=== PATIENT | female | born 1955 | race Caucasian/White ===

== ENCOUNTER 2017-10-13 21:54 | Inpatient (IN) ==
[2017-10-13] MEDS ORDERED: fentaNYL Inj 100 MCG/2 ML VIAL IVP ONE (22:16)
[2017-10-13] MEDS ORDERED: Sodium Chloride 0.9% 1,000 ML PRIMARY IV ONE (22:16)
[2017-10-13] MEDS ORDERED: Prochlorperazine Edisylate Inj 10mg/2ml vial IVP ONE (22:16)
[2017-10-13] MEDS ORDERED: NORMAL SALINE 10 ML SYRINGE FLUSH IVP PRN ×2 (22:16→23:31)
[2017-10-13 22:30] LABS: BASOPHILS # (AUTO) 0.02 10*3/UL; BASOPHILS % (AUTO) 0.1 % (0-1); EOSINOPHILS # (AUTO) 0.18 10*3/UL; EOSINOPHILS % (AUTO) 0.8 % (0-8); Hemoglobin [HGB] 15.1 g/dL (12.0-16.0); LYMPHOCYTES # (AUTO) 2.86 10*3/uL; MEAN CORPUSCULAR HEMOGLOBIN 30.2 PG (27-31); MEAN CORPUSCULAR HGB CONC 34.3 g/dL (33-37); MEAN PLATELET VOLUME 9.7 FL (7.4-12.2); MONOCYTES # (AUTO) 1.55 10*3/UL (0.3-0.8); MONOCYTES % (AUTO) 7.2 % (5-15); NEUTROPHILS # (AUTO) 16.94 10*3/UL; NEUTROPHILS % (AUTO) 78.4 % (50-80)
[2017-10-13 22:42] LABS: BLOOD UREA NITROGEN 11 mg/dL (7-22); BUN/CREATININE RATIO 12.22 (6-20); SERUM ALBUMIN 4.1 g/dL (3.5-4.8)
[2017-10-13 22:46] LABS: PLATELET MORPHOLOGY COMMENT NORMAL MORPHOLOGY (NORM); RBC MORPHOLOGY COMMENT NORMAL MORPHOLOGY (NORM); WBC MORPHOLOGY COMMENT NORMAL MORPHOLOGY (NORM)
--- NOTE | 2017-10-13 22:57 | PDOC ---
Abdomen/Flank HPI - General Chief Complaint: Abdomen Pain Stated Complaint: ABDOMEN PAIN Date Seen by Provider: 10/13/17 Time Seen by Provider: 22:10 Source: POSITIVE: Patient Exam Limitations: POSITIVE: No limitations Nurse's Notes Reviewed & Considered: Yes - History of Present Illness Initial Comments: The patient is a 62-year-old female who presents to the emergency department with abdominal pain. She states that she had onset of pain in the epigastric/ upper abdomen yesterday. She states that at 3:00 this morning the pain became very intense. She was evaluated in the emergency department at [facility] in [place]. She had an elevated white count at 18,000 as well as elevated pancreatic enzymes with a lipase of over 18,000 and an amylase of 2700. She had a CAT scan of her abdomen and pelvis which showed some mild inflammatory change at the head of the pancreas with no other acute abnormalities. She had been given a Toradol injection IM and was discharged home. She states that the Toradol never really did help with her pain. Her pain has intensified since then. She tried taking some Tylenol which did not seem to help at all. She has been taking some sips of water and apple juice. She does not have any known history of pancreatitis. She had prior cholecystectomy in the s and distant history of hysterectomy and appendectomy. She does not drink alcohol and states that she maybe had one beer last year. She does take several homeopathic medications. - Patient Home Medications Home Medications: Home Medications Estradiol/Levonorgestrel [Climara Pro Patch] 1 patch TD WEEKLY patch 12/06/11 Evening Applegate Oil [Evening Applegate] 500 mg PO cap 05/04/16 Albuterol Sulfate [Proair Hfa] 1 - 2 puff INH Q4-6H PRN #1 inhaler 08/15/16 Fluticasone Propionate [Flonase Allergy Relief] 2 spr RAMEZ DAILY #1 bottle 05/10 - Patient Allergies Allergies/Adverse Reactions: Allergies 3 Allergy/AdvReac Type Severity Reaction Status Date / Time cephalexin monohydrate Allergy Intermediate HIVES Verified 08/26/16 06:43 [From Keflex] erythromycin base Allergy Intermediate HIVES Verified 08/26/16 06:43 codeine Allergy UNRESPONSIV Verified 08/26/16 06:43 E meperidine HCl [From Demerol] Allergy UNRESPONSIV Verified 08/26/16 06:43 E morphine Allergy UNRESPONSIV Verified 08/26/16 06:43 E oxycodone Allergy HIVES Verified 08/26/16 06:43 Penicillins Allergy UNRESPONSIV Verified 08/26/16 06:43 E Sulfa (Sulfonamide Allergy UNRESPONSIV Verified 08/26/16 06:43 Antibiotics) E phenobarbital AdvReac Mild VOMITING Verified 08/26/16 06:43 Past Medical History - heen HEENT History: Other (please comment) Additional HEENT History: tonsils and adoids Cardiovascular History: Denies History Respiratory History: Denies History Additional Respiratory History: allergic rhinitis Gastrointestinal History: Gallbladder Disease Additional Gastrointestinal History: Appy, GB removed Genitourinary History: Denies History Endocrine History: Denies History Musculoskeletal History: Joint Pain Prosthesis or Implant: No Additional Musculoskeletal History: right elbow. left foot surgeries Neurological History: Denies History Blood Disorders: Denies History Psychiatric History: Denies History History of Sexually Transmitted Diseases: No Cancer History: Denies History History of MDRO: No History of Other Communicable Diseases: No Alcohol Use: None In the Past 12 Months, Have Used or Abuse Any Substance: None Previous Surgical History: Yes Significant Family History: No pertinent family hx Past Medical History Reviewed: Reviewed - No Changes ROS - Limitations ROS Limitations: No Limitations Constitution: REPORTS: Chills (She has been having chills all day), Other (She states that her white count has been persistently elevated for at least the past year. She states that several weeks ago it was 14,000.). DENIES: Fever Cardiovascular: REPORTS: Denies Cardiac Symptoms. DENIES: Chest Pain Respiratory: DENIES: Hurts To Breathe, Shortness Of Breath Neurological: REPORTS: Denies Neuro Symptoms Gastrointestinal: REPORTS: Abdominal Pain, Nausea. DENIES: Vomitting, Diarrhea , Black Stools, Bloody Stools, Constipation Musculoskeletal: REPORTS: Denies MS Symptoms Genitourinary: REPORTS: Denies Symptoms Eyes: REPORTS: Denies Symptoms ENT: REPORTS: Denies Symptoms Skin: REPORTS: Rash Abdominal/Flank Pain PE - General Appearance General Appearance: POSITIVE: Alert, Cooperative, No Acute Distress, Other (She appears to be having significant pain) - HEENT HEENT: POSITIVE: Head Inspection Nml, Eyes Inspection Nml, Ears Inspection Nml, Pharynx Inspect. Nml, Dry Mucous Membranes - Neck Neck: POSITIVE: Normal Inspection. NEGATIVE: Lymphadenopathy - Respiratory Respiratory: POSITIVE: No Respiratory Distress, Breath Sounds Normal, Chest Non- Tender - Cardiovascular Cardiovascular: POSITIVE: Regular Rate and Rhythm, Heart Sounds Normal Peripheral Pulses: Dorsalis-pedis (R): 2+, Dorsalis-pedis (L): 2+ - Abdomen Abdomen: Soft: (All Quadrants), No Guarding: (All Quadrants), No Rebound: (All Quadrants), No Distention: (All Quadrants) Additional Abdominal Details: She is tender primarily in the epigastric region without guarding or rebound tenderness - Skin Skin: POSITIVE: Intact, No Rash - Extremities Extremity: Normal ROM: (All Extremities), Normal Inspection: (All Extremities) - Neurological Neurological: POSITIVE: Oriented X3, Motor Normal, Sensation Normal Abdomen Progress - Results Reviewed by me Radiology Findings: CT report from her abdomen and pelvis CT done at [facility] this morning shows mild inflammatory changes at the pancreatic head with no other acute abnormalities. Lab Results Reviewed by Me: Yes CBC and BMP: 10/13/17 22:25 10/13/17 22:25 - Patient's Progress MDM / ED Course: Blood cultures were drawn with IV start. The patient received fentanyl and Compazine for pain and nausea. She also received 1 L bolus of normal saline. She has already had a workup earlier this morning which showed significantly elevated amylase and lipase as well as inflammatory changes at the pancreatic head on CT. Repeat labs were drawn and the patient was discussed with Dr. Mccord who has agreed to admit the patient for further treatment. Patients were discussed with the patient and she is in agreement with this plan. - Consult Counseled: POSITIVE: Patient, Family, RE: Lab Results, RE: DX, RE: Need for F/U Patient Care Time - Estimated PCT Patient Care Time (In Minutes): 20 Vital Signs - VS Reviewed Vital Signs Reviewed: Yes Discharge Clinical Impression: Pancreatitis Qualifiers: Chronicity: acute Pancreatitis type: idiopathic Acute pancreatitis complication : no infection or necrosis Qualified Code(s): K85.00 - Idiopathic acute pancreatitis without necrosis or infection Leukocytosis Qualifiers: Leukocytosis type: unspecified Qualified Code(s): D72.829 - Elevated white blood cell count, unspecified Discharge Disposition: Admit to Inpatient Condition: Fair Date Decision to Admit to Inpatient: 10/13/17 Time Decision to Admit to Inpatient: 22:25
[2017-10-13 23:06] LABS: LIPASE 10221 IU/L (23-300)
[2017-10-13] MEDS ORDERED: ONDANSETRON 4 MG/2 ML VIAL ONE (23:24)
[2017-10-13] MEDS ORDERED: HYDROmorphone 2 MG/1 ML ONE (23:24)
[2017-10-13] MEDS ORDERED: ONDANSETRON 4 MG/2 ML VIAL IVP ONE (23:25)
[2017-10-13] MEDS ORDERED: HYDROmorphone 2 MG/1 ML IVP ONE (23:25)
[2017-10-13] MEDS ORDERED: ALBUTEROL SULFATE 8.5 GM HFA INHALER INH PRN (23:31)
[2017-10-13] MEDS ORDERED: CALCIUM CARBONATE 500 MG (TUMS) CHEWABLE TABLET PO PRN (23:31)
[2017-10-13] MEDS ORDERED: LIDOCAINE W/ SODIUM BICARB 0.5 ML SYR SUBD PRN (23:31)
[2017-10-13] MEDS ORDERED: DOCUSATE 100 MG CAPSULE PO PRN (23:31)
[2017-10-13] MEDS ORDERED: D5-1/2NS + 20mEq KCL 1,000 ML PRIMARY IV ONE (23:31)
[2017-10-13] MEDS ORDERED: ACETAMINOPHEN 325 MG TABLET PO PRN (23:31)
--- NOTE | 2017-10-13 23:31 | PDOC ---
HPI - History of Present Illness Date of Service: 10/13/17 Time of Service: 11:30 Chief Complaint: Abdominal pain History of Present Illness: This is a 62-year-old female with really no past medical history outside of hormone replacement therapy because of an early life hysterectomy who presents with complains of abdominal pain. She is accompanied with her here kim. She states that her pain started in the epigastric area and around her xiphoid process and in her lower quadrants around [place]. She states it' s been a constant pain and does not really been worsened by anything, but she thinks she had a low-grade fever as well. She sees a provider for some hormone injections including an estrogen/testosterone therapy, and does IM shots for that. At that time she had a white blood cell count of around 14,000, and was given Cipro. She later saw her cad intern to tested her urine but did not culture it and it was positive for nitrites and the patient was placed on Macrobid at that time. None of this has made any difference in her abdominal pain. Interestingly, she presented last night to [facility] in [place], and was diagnosed with pancreatitis with a lipase of over 18 ,000, she had her labs with her and a copy of her CT scan which showed mild inflammation of the pancreatic head. There was no evidence of ductal dilation on that CT scan report although I do not have the films to review here. Kim , on repeat labs, her amylase and lipase are both elevated, but her liver enzymes are normal. She's never had pancreatitis before and she does not drink alcohol. She had a cholecystectomy, open cholecystectomy, several years back. Past Medical History Medical History: 1. Hormone replacement therapy status post hysterectomy. 2. Leukocytosis dating back to at least August 2016. Surgical History: 1. Cholecystectomy. 2. Appendectomy. 3. Hysterectomy. 4. Salpingo-oophorectomy. 5. Right abdominal hernia repair. 6. Tonsillectomy. 7. History of EGD and colonoscopy Pertinent Family History: She states that she has a daughter with Vicente syndrome. Past Social History: Does not smoke or drink alcohol. for over 30 years. Has 2 children. 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 Tobacco Use: Never Smoker In the Past 12 Months, Have Used or Abuse Any of the Following Substance: None Alcohol Use: None Medication / Allergies Home Medications: Home Medications Medication Instructions Recorded Confirmed Type Estradiol/Levonorgestrel [Climara 1 patch TD WEEKLY patch 12/06/11 05/09/15 History Pro Patch] Evening Lester Oil [Evening 500 mg PO cap 05/04/16 History Lester] Albuterol Sulfate [Proair Hfa] 1 - 2 puff INH Q4-6H PRN #1 inhaler 08/15/16 History Fluticasone Propionate [Flonase 2 spr RAMEZ DAILY #1 bottle 05/10/17 Rx Allergy Relief] Allergies/Adverse Reactions: Allergies 3 Allergy/AdvReac Type Severity Reaction Status Date / Time cephalexin monohydrate Allergy Intermediate HIVES Verified 08/26/16 06:43 [From Keflex] erythromycin base Allergy Intermediate HIVES Verified 08/26/16 06:43 codeine Allergy UNRESPONSIV Verified 08/26/16 06:43 E meperidine HCl [From Demerol] Allergy UNRESPONSIV Verified 08/26/16 06:43 E morphine Allergy UNRESPONSIV Verified 08/26/16 06:43 E oxycodone Allergy HIVES Verified 08/26/16 06:43 Penicillins Allergy UNRESPONSIV Verified 08/26/16 06:43 E Sulfa (Sulfonamide Allergy UNRESPONSIV Verified 08/26/16 06:43 Antibiotics) E phenobarbital AdvReac Mild VOMITING Verified 08/26/16 06:43 Review of Systems - Review of Systems All Systems: Reviewed & No Additional Complaints Except as Stated (I did a 12 point review of systems and it was negative other than that stated in history present illness and that noted below.) - Gastrointestinal Gastrointestinal / Abdominal: REPORTS: Abdominal Pain, Other (Had nausea, but no vomiting, diarrhea, or constipation. No blood in the stool) - Genitourinary Genitourinary: REPORTS: Negative System Review (Currently negative) - Musculoskeletal Musculoskeletal: REPORTS: Other (This culture might have fibromyalgia in the past but that seems to resolved in terms of thought process.) - Hematlogic / Lymphatic Hematologic / Lymphatic: REPORTS: Easy Bleeding/Bruising, Other (Easy bruising at times) Exam - Vitals Vital Signs: Vital Signs - Last Taken Temperature 97.6 F 10/13/17 22:41 Pulse Rate 86 10/13/17 22:41 Respiratory Rate 18 10/13/17 22:41 Blood Pressure 148/80 10/13/17 22:41 Pulse Ox 95 10/13/17 22:41 - General General Appearance: No Acute Distress, Cooperative - Head Head Exam: Normal Inspection, Normocephalic, Atraumatic - Eye Eye Exam: POSITIVE: No Scleral Icterus - ENT ENT Exam: POSITIVE: Mucous Membranes Moist - Neck Neck Exam: Normal Inspection, No Tenderness, No Lymphadenopathy, No Thyromegaly - Respiratory Respiratory Exam: POSITIVE: Clear to Auscultation - Bilaterally, Breathing Non Labored, Normal to Percussion and Palpation - Cardiovascular Cardiovascular Exam: POSITIVE: RRR, No Murmur, No Clicks, No Gallops, No Rubs, No JVD - GI/Abdominal GI/Abdominal Exam: POSITIVE: Normal Bowel Sounds, Non Distended, Soft Additional GI/Abdominal Exam Details: Epigastric tenderness on palpation - Rectal Rectal Exam: POSITIVE: Deferred - External Exam: POSITIVE: Deferred Exam: POSITIVE: Deferred - Extremities Extremities Exam: POSITIVE: No Clubbing Present, No Edema Present, No Cyanosis Present - Back Back Exam: POSITIVE: No CVA Tenderness - Neurological Neurological Exam: POSITIVE: Alert, Oriented x 3, No Facial Droop, Speech Intact / Clear, Moves All Extremities Equally - Psychiatric Psychiatric Exam: POSITIVE: Normal Affect, Normal Mood Results - Labs CBC and BMP: 10/13/17 22:25 10/13/17 22:25 Additional Lab Results: Laboratory Results 10/13/17 10/13/17 Range/Units 22:25 22:25 WBC 21.61 H (4.8-10.8) 10^3/uL RBC 5.00 (4.20-5.40) 10^6/uL Hgb 15.1 (12.0-16.0) g/dL Hct 44.0 (37.0-47.0) % MCV 88.0 (81-99) FL MCH 30.2 (27-31) PG MCHC 34.3 (33-37) g/dL RDW Std Deviation 45.3 (39-50) fL RDW Coeff of Dixie 14.2 (11.5-14.5) % Plt Count 322 (140-350) 10*3/uL MPV 9.7 (7.4-12.2) FL Immature Gran % (Auto) 0.3 (0-5) % Neut % (Auto) 78.4 (50-80) % Lymph % (Auto) 13.2 (10-50) % [place] % (Auto) 7.2 (5-15) % Eos % (Auto) 0.8 (0-8) % Baso % (Auto) 0.1 (0-1) % Immature Gran # (Auto) 0.06 10*3/UL Neut # (Auto) 16.94 10*3/UL Lymph # (Auto) 2.86 10*3/uL [place] # (Auto) 1.55 H (0.3-0.8) 10*3/UL Eos # (Auto) 0.18 10*3/UL Baso # (Auto) 0.02 10*3/UL WBC Morphology Comment Normal morphology (NORM) Plt Morphology Comment Normal morphology (NORM) RBC Morph Comment Normal morphology (NORM) Sodium 140 (135-145) meq/L Potassium 4.0 (3.8-5.2) meq/L Chloride 103 (98-112) meq/L Carbon Dioxide 24 (23-33) meq/L Anion Gap 13 (5-20) BUN 11 (7-22) mg/dL Creatinine 0.9 (0.50-1.20) mg/dL Estimated GFR > 60 (>60 ml/min/1.73m(2)) BUN/Creatinine Ratio 12.22 (6-20) Glucose 113 H (78-110) mg/dL Calculated Osmolality 289.0 (267-292) mOsm/kg Calcium 9.0 (8.7-10.7) mg/dL Total Bilirubin 0.5 (0.3-1.2) mg/dL AST 24 (8-39) IU/L ALT 29 (9-52) IU/L Alkaline Phosphatase 46 (38-126) IU/L C-Reactive Protein 4.0 H (0.0-0.9) mg/dL Total Protein 7.0 (6.1-8.0) g/dL Albumin 4.1 (3.5-4.8) g/dL Globulin 2.9 (2.50-4.10) g/dL Albumin/Globulin Ratio 1.40 (1.3-2.0) mg/g Amylase 1088 H (30-110) U/L Lipase 52127 H* (23-300) IU/L - Imaging Status: Report Reviewed by Me (I reviewed the report from [place] that the patient provided me. There was a CT scan of the abdomen and pelvis that was done there. There was evidence of pancreatitis with inflammation in the pancreatic head.) Assessment and Plan - Patient Problems (1) Pancreatitis Current Visit: Yes Status: Acute Code(s): K85.90 - Acute pancreatitis without necrosis or infection, unspecified Qualifiers: Chronicity: acute Pancreatitis type: idiopathic Acute pancreatitis complication: no infection or necrosis Qualified Code(s): K85.00 - Idiopathic acute pancreatitis without necrosis or infection (2) Leukocytosis Current Visit: Yes Status: Acute Code(s): D72.829 - Elevated white blood cell count, unspecified Qualifiers: Leukocytosis type: unspecified Qualified Code(s): D72.829 - Elevated white blood cell count, unspecified - Assessment / Plan Additional Assessment/Plan Details: Admit the patient. Nothing by mouth/IV fluids/pain control with parenteral medications and antiemetics with Zofran. Hold off on any antibiotics for this leukocytosis. I told the patient that I do not think it would be a good idea to go on antibiotics for an elevated white blood cell count as that is not the only indicator of infection. Randomly going on antibiotics could be dangerous due to side effects from these medications. There is no evidence of infection on exam at this time nor is there indication of infection in the history. I will keep her off of anabolic for now. IV fluids. Check labs tomorrow. In terms of the leukocytosis, this could certainly be CLL, I will go ahead and get protein and urine electrophoresis, and I will check a peripheral blood smear On Sunday I think the patient should have an MRCP scan or an abdominal MRI scan to look at this further to see if there is any pancreatic duct inflammation. Get an IgE level Check triglyceride level. Plan above discussed with patient and her and they agreed with the plan.
[2017-10-14] MEDS: HYDROmorphone 2 MG/1 ML IVP PRN ×7 (02:10→15:40)
[2017-10-14] MEDS: ONDANSETRON 4 MG/2 ML VIAL IVP PRN ×2 (04:42→11:45)
[2017-10-14 05:12] LABS: Hematocrit [HCT] 41.8 % (37.0-47.0); Hemoglobin [HGB] 14.1 g/dL (12.0-16.0); MEAN CORPUSCULAR HEMOGLOBIN 30.4 PG (27-31); MEAN CORPUSCULAR HGB CONC 33.7 g/dL (33-37); MEAN CORPUSCULAR VOLUME 90.1 FL (81-99); MEAN PLATELET VOLUME 9.8 FL (7.4-12.2); RED BLOOD COUNT 4.64 10^6/uL (4.20-5.40)
[2017-10-14 05:26] LABS: CHOL/HDL RATIO 2.22 RATIO (0-4.0)
[2017-10-14 05:27] LABS: BLOOD UREA NITROGEN 9 mg/dL (7-22); BUN/CREATININE RATIO 11.25 (6-20); SERUM ALBUMIN 3.6 g/dL (3.5-4.8)
[2017-10-14 05:32] LABS: LIPASE 8510 IU/L (23-300)
[2017-10-14 05:37] LABS: HEMOGLOBIN A1C 5.46 % (4.2-6.0)
[2017-10-14 05:56] LABS: PLATELET MORPHOLOGY COMMENT NORMAL MORPHOLOGY (NORM); RBC MORPHOLOGY COMMENT NORMAL MORPHOLOGY (NORM); WBC MORPHOLOGY COMMENT SEE COMMENTS (NORM)
[2017-10-14 05:57] LABS: BAND NEUTROPHILS % 0 % (0-10); BASOPHILS % (MANUAL) 0 % (0-1); EOSINOPHILS % (MANUAL) 0 % (0-8); MONOCYTES % (MANUAL) 3 % (0-12); NEUTROPHILS % (MANUAL) 82 % (50-80)
[2017-10-14] MEDS ORDERED: Prochlorperazine Edisylate Inj 10 MG in Sodium Chloride 0.9% 500 ML IV ONE (08:59)
[2017-10-14] MEDS ORDERED: EVENING PRIMROSE OIL 500 MG PO SCH (09:00)
[2017-10-14] MEDS ORDERED: Prochlorperazine Edisylate Inj 10mg/2ml vial ONE (09:12)
[2017-10-14] MEDS: Prochlorperazine Edisylate Inj 10mg/2ml vial IVP PRN ×3 (09:19→20:44)
[2017-10-14] MEDS: D5-1/2NS + 20mEq KCL 1,000 ML PRIMARY IV SCH ×2 (10:15→19:00)
--- NOTE | 2017-10-14 15:21 | PDOC(PROG) ---
Date and Time of Service: 10/14/2017, 1515 Interval History: having nausea, vomiting, and abdominal pain. no chest pain. no SOB Objective : Data - Labs CBC and BMP: 10/14/17 04:45 10/14/17 04:45 Additional Lab Results: Laboratory Results 10/13/17 10/13/17 10/14/17 Range/Units 22:25 22:25 04:45 WBC 21.61 H 19.92 H (4.8-10.8) 10^3/uL RBC 5.00 4.64 (4.20-5.40) 10^6/uL Hgb 15.1 14.1 (12.0-16.0) g/dL Hct 44.0 41.8 (37.0-47.0) % MCV 88.0 90.1 (81-99) FL MCH 30.2 30.4 (27-31) PG MCHC 34.3 33.7 (33-37) g/dL RDW Std Deviation 45.3 46.5 (39-50) fL RDW Coeff of Dixie 14.2 14.3 (11.5-14.5) % Plt Count 322 294 (140-350) 10*3/uL MPV 9.7 9.8 (7.4-12.2) FL Immature Gran % (Auto) 0.3 (0-5) % Neut % (Auto) 78.4 (50-80) % Lymph % (Auto) 13.2 (10-50) % [place] % (Auto) 7.2 (5-15) % Eos % (Auto) 0.8 (0-8) % Baso % (Auto) 0.1 (0-1) % Immature Gran # (Auto) 0.06 10*3/UL Neut # (Auto) 16.94 10*3/UL Lymph # (Auto) 2.86 10*3/uL [place] # (Auto) 1.55 H (0.3-0.8) 10*3/UL Eos # (Auto) 0.18 10*3/UL Baso # (Auto) 0.02 10*3/UL Neutrophils % (Manual) 82 H (50-80) % Band Neutrophils % 0 (0-10) % Lymphocytes % (Manual) 15 (10-50) % Monocytes % (Manual) 3 (0-12) % Eosinophils % (Manual) 0 (0-8) % Basophils % (Manual) 0 (0-1) % Metamyelocytes % Not Reportable Myelocytes % Not Reportable Promyelocytes % Not Reportable Blast Cells Not Reportable WBC Morphology Comment Normal morphology See comments (NORM) Plt Morphology Comment Normal morphology Normal morphology (NORM) RBC Morph Comment Normal morphology Normal morphology (NORM) Sodium 140 (135-145) meq/L Potassium 4.0 (3.8-5.2) meq/L Chloride 103 (98-112) meq/L Carbon Dioxide 24 (23-33) meq/L Anion Gap 13 (5-20) BUN 11 (7-22) mg/dL Creatinine 0.9 (0.50-1.20) mg/dL Estimated GFR > 60 (>60 ml/min/1.73m(2)) BUN/Creatinine Ratio 12.22 (6-20) Glucose 113 H (78-110) mg/dL Mean Blood Glucose mg/dL Hemoglobin A1c (4.2-6.0) % Calculated Osmolality 289.0 (267-292) mOsm/kg Calcium 9.0 (8.7-10.7) mg/dL Total Bilirubin 0.5 (0.3-1.2) mg/dL AST 24 (8-39) IU/L ALT 29 (9-52) IU/L Alkaline Phosphatase 46 (38-126) IU/L C-Reactive Protein 4.0 H (0.0-0.9) mg/dL Total Protein 7.0 (6.1-8.0) g/dL Albumin 4.1 (3.5-4.8) g/dL Globulin 2.9 (2.50-4.10) g/dL Albumin/Globulin Ratio 1.40 (1.3-2.0) mg/g Triglycerides (44-200) mg/dL Cholesterol (120-200) mg/dL LDL Cholesterol, Calc mg/dL VLDL Cholesterol (0-40) mg/dL HDL Cholesterol (40-150) mg/dL Cholesterol/HDL Ratio (0-4.0) RATIO Amylase 1088 H (30-110) U/L Lipase 38663 H* (23-300) IU/L 10/14/17 10/14/17 10/14/17 Range/Units 04:45 04:45 04:45 WBC (4.8-10.8) 10^3/uL RBC (4.20-5.40) 10^6/uL Hgb (12.0-16.0) g/dL Hct (37.0-47.0) % MCV (81-99) FL MCH (27-31) PG MCHC (33-37) g/dL RDW Std Deviation (39-50) fL RDW Coeff of Dixie (11.5-14.5) % Plt Count (140-350) 10*3/uL MPV (7.4-12.2) FL Immature Gran % (Auto) (0-5) % Neut % (Auto) (50-80) % Lymph % (Auto) (10-50) % [place] % (Auto) (5-15) % Eos % (Auto) (0-8) % Baso % (Auto) (0-1) % Immature Gran # (Auto) 10*3/UL Neut # (Auto) 10*3/UL Lymph # (Auto) 10*3/uL [place] # (Auto) (0.3-0.8) 10*3/UL Eos # (Auto) 10*3/UL Baso # (Auto) 10*3/UL Neutrophils % (Manual) (50-80) % Band Neutrophils % (0-10) % Lymphocytes % (Manual) (10-50) % Monocytes % (Manual) (0-12) % Eosinophils % (Manual) (0-8) % Basophils % (Manual) (0-1) % Metamyelocytes % Myelocytes % Promyelocytes % Blast Cells WBC Morphology Comment (NORM) Plt Morphology Comment (NORM) RBC Morph Comment (NORM) Sodium 142 (135-145) meq/L Potassium 3.9 (3.8-5.2) meq/L Chloride 104 (98-112) meq/L Carbon Dioxide 27 (23-33) meq/L Anion Gap 11 (5-20) BUN 9 (7-22) mg/dL Creatinine 0.8 (0.50-1.20) mg/dL Estimated GFR > 60 (>60 ml/min/1.73m(2)) BUN/Creatinine Ratio 11.25 (6-20) Glucose 136 H (78-110) mg/dL Mean Blood Glucose 95.818 mg/dL Hemoglobin A1c 5.46 (4.2-6.0) % Calculated Osmolality 294.0 H (267-292) mOsm/kg Calcium 8.1 L (8.7-10.7) mg/dL Total Bilirubin 0.7 (0.3-1.2) mg/dL AST 35 (8-39) IU/L ALT 31 (9-52) IU/L Alkaline Phosphatase 43 (38-126) IU/L C-Reactive Protein (0.0-0.9) mg/dL Total Protein 6.3 (6.1-8.0) g/dL Albumin 3.6 (3.5-4.8) g/dL Globulin 2.7 (2.50-4.10) g/dL Albumin/Globulin Ratio 1.30 (1.3-2.0) mg/g Triglycerides 51 (44-200) mg/dL Cholesterol 100 L (120-200) mg/dL LDL Cholesterol, Calc 44.800 mg/dL VLDL Cholesterol 10 (0-40) mg/dL HDL Cholesterol 45 (40-150) mg/dL Cholesterol/HDL Ratio 2.22 (0-4.0) RATIO Amylase (30-110) U/L Lipase 8510 H* (23-300) IU/L Objective : Exam - General General Appearance: No Acute Distress, Cooperative Additional General Exam Details: Vital Signs (24 hrs) Temp Pulse Pulse Resp BP BP Pulse Ox 10/14/17 13:37 99 F 10/14/17 12:28 99 F 87 18 127/80 95 10/14/17 11:00 82 10/14/17 09:00 98.6 F 78 16 132/81 93 10/14/17 07:00 70 16 10/14/17 04:19 98.0 F 73 16 148/86 96 10/14/17 03:00 71 10/13/17 23:46 98.4 F 69 12 122/72 94 10/13/17 23:32 97.6 F 66 18 155/77 95 10/13/17 22:41 97.6 F 86 18 148/80 95 - Eye Eye Exam: No Scleral Icterus - ENT ENT Exam: Mucous Membranes Moist - Respiratory Respiratory Exam: Clear to Auscultation - Bilaterally, Breathing Non Labored - Cardiovascular Cardiovascular Exam: No Murmur, No Clicks, No Gallops, No Rubs, Tachycardia, No JVD - GI/Abdominal GI/Abdominal Exam: Normal Bowel Sounds, Non Distended, Soft Additional GI/Abdominal Exam Details: tender epigastric space - Extremities Extremities Exam: No Clubbing Present, No Edema Present, No Cyanosis Present - Neurological Neurological Exam: Alert, Oriented x 3, No Facial Droop, Speech Intact / Clear, Moves All Extremities Equally Assessment and Plan - Patient Problems (1) Pancreatitis Current Visit: Yes Status: Acute Code(s): K85.90 - Acute pancreatitis without necrosis or infection, unspecified Qualifiers: Chronicity: acute Pancreatitis type: idiopathic Acute pancreatitis complication: no infection or necrosis Qualified Code(s): K85.00 - Idiopathic acute pancreatitis without necrosis or infection (2) Leukocytosis Current Visit: Yes Status: Acute Code(s): D72.829 - Elevated white blood cell count, unspecified Qualifiers: Leukocytosis type: unspecified Qualified Code(s): D72.829 - Elevated white blood cell count, unspecified - Assessment / Plan Additional Assessment/Plan Details: check labs in AM no appetite today, but will allow ice chips pain meds, antiemetics. MRI of abdomen on Sunday will need repeat CT in a couple months to make sure there is now mass or pseudocyst IV fluids patient says oxycodone, tramadol, and hydrocodone will not work due to side effects.
[2017-10-14] MEDS ORDERED: Acetaminophen 1000mg Inj 1,000 MG/100 ML VIAL IV PRN (17:19)
[2017-10-14] MEDS: KETOROLAC 30 MG/1 ML VIAL IVP PRN ×2 (17:40→23:38)
[2017-10-14] MEDS: fentaNYL Inj 100 MCG/2 ML VIAL IVP PRN ×2 (20:43→22:41)
[2017-10-14] MEDS ORDERED: Sodium Chloride 0.9% 1,000 ML PRIMARY IV ONE (23:49)
[2017-10-15] MEDS: HYDROmorphone 2 MG/1 ML IVP PRN ×3 (00:42→09:57)
[2017-10-15] MEDS: D5-1/2NS + 20mEq KCL 1,000 ML PRIMARY IV SCH ×2 (04:09→13:06)
[2017-10-15 04:46] VITALS: RESP 20
[2017-10-15 05:01] LABS: Hematocrit [HCT] 38.5 % (37.0-47.0); Hemoglobin [HGB] 12.8 g/dL (12.0-16.0); MEAN CORPUSCULAR HEMOGLOBIN 30.7 PG (27-31); MEAN CORPUSCULAR HGB CONC 33.2 g/dL (33-37); MEAN CORPUSCULAR VOLUME 92.3 FL (81-99); MEAN PLATELET VOLUME 9.9 FL (7.4-12.2); RED BLOOD COUNT 4.17 10^6/uL (4.20-5.40)
[2017-10-15 05:08] LABS: BLOOD UREA NITROGEN 9 mg/dL (7-22); BUN/CREATININE RATIO 11.25 (6-20); SERUM ALBUMIN 3.3 g/dL (3.5-4.8)
[2017-10-15 06:07] LABS: LIPASE 1535 IU/L (23-300); PLATELET MORPHOLOGY COMMENT NORMAL MORPHOLOGY (NORM); RBC MORPHOLOGY COMMENT NORMAL MORPHOLOGY (NORM); WBC MORPHOLOGY COMMENT NORMAL MORPHOLOGY (NORM)
[2017-10-15 06:08] LABS: BAND NEUTROPHILS % 5 % (0-10); BASOPHILS % (MANUAL) 0 % (0-1); EOSINOPHILS % (MANUAL) 0 % (0-8); MONOCYTES % (MANUAL) 4 % (0-12); NEUTROPHILS % (MANUAL) 86 % (50-80)
[2017-10-15] MEDS: ONDANSETRON 4 MG/2 ML VIAL IVP PRN ×2 (07:07→13:27)
[2017-10-15] MEDS: KETOROLAC 30 MG/1 ML VIAL IVP PRN ×2 (07:07→12:53)
[2017-10-15] MEDS: Prochlorperazine Edisylate Inj 10mg/2ml vial IVP PRN (09:59)
[2017-10-15 11:27] VITALS: BP 97/60; TEMP 98.6; O2SAT 95
--- NOTE | 2017-10-15 13:15 | DCSUMMARY ---
Hospitalization Summary Hospital Course: Final Discharge Diagnosis: Current Visit Problems Problem Status Onset Code Pancreatitis Acute K85.90 Leukocytosis Acute D72.829 Diagnostic Data, Laboratory Data, and Procedures of Signifigance: Abnormal Lab Results (Last 24 Hours) Range/Units 10/15/17 10/15/17 04:15 04:15 WBC (4.8-10.8) 10^3/uL 34.80 H* RBC (4.20-5.40) 10^6/uL 4.17 L Neutrophils % (Manual) (50-80) % 86 H Lymphocytes % (Manual) (10-50) % 5 L Glucose (78-110) mg/dL 118 H Calcium (8.7-10.7) mg/dL 7.5 L Total Protein (6.1-8.0) g/dL 6.0 L Albumin (3.5-4.8) g/dL 3.3 L Albumin/Globulin Ratio (1.3-2.0) mg/g 1.20 L Lipase (23-300) IU/L 1535 H* History and Physical pertinent to Admission: Past Medical History Medical History: 1. Hormone replacement therapy status post hysterectomy. 2. Leukocytosis dating back to at least August 2016. Surgical History: 1. Cholecystectomy. 2. Appendectomy. 3. Hysterectomy. 4. Salpingo-oophorectomy. 5. Right abdominal hernia repair. 6. Tonsillectomy. 7. History of EGD and colonoscopy Pertinent Family History: She states that she has a daughter with Vicente syndrome. Past Social History: Does not smoke or drink alcohol. for over 30 years. Has 2 children. Retired used to work as a medical practitioners and a IT ANALYST. Tobacco Use: Never Smoker In the Past 12 Months, Have Used or Abuse Any of the Following Substance: None Alcohol Use: None Course of Hospitalization: Is a very nice 63-year-old female presented to the ER with abdominal pain accompanied by her she had an elevated white count of 14,000 and was given Cipro by the PA there is given her estrogen or hormone replacement therapy she also saw a ground defence officer which she tested her urine but with no culture that was positive nitrates and the patient was placed on Macrobid at that time. CT of the abdomen and pelvis showed mild inflammation of the head of the pancreas no Dr. the but in reviewing her labs her white count is elevated since August 2016 with today topping 34,000 there is a very strong possibility this patient could have a diagnosis of CLL which showed could cause her pancreatitis and some studies even some carcinoid tumors in the pancreas most likely will need an MRI hematology oncology consult with possible bone marrow and flow cytometry testing I've called the [facility] since we do not have any of these resources here and [place] I spoke to Dr. Jeter who pleasantly accepted the patient in transfer I discussed the case with patient and nursing on agreement. Overall she is better from a pancreatitis with lipase of 1500 and pain is also better on palpation On the date of discharge, the patient was examined: Gen.: No acute distress, alert, nontoxic Heart: Regular rate and rhythm, no murmurs, clicks, gallops, or rubs Lungs: Clear to auscultation bilaterally, breathing is nonlabored Abdomen/GI: Normal tones on auscultation, soft, nontender, nondistended Musculoskeletal/extremities: No clubbing, cyanosis, or edema Vitals reviewed and are listed below Vital Signs (24 hrs) Temp Pulse Pulse Resp BP Pulse Ox 10/15/17 11:25 98.6 F 78 20 97/60 95 10/15/17 11:00 78 10/15/17 07:08 99 F 92 20 143/78 94 10/15/17 06:40 89 10/15/17 04:45 98.4 F 85 20 116/66 94 10/15/17 04:38 93 10/15/17 03:00 87 10/15/17 01:00 98.9 F 93 18 133/76 92 10/14/17 23:00 120 H 10/14/17 21:00 98.0 F 87 22 120/69 94 10/14/17 19:00 87 10/14/17 16:40 99.9 F H 90 20 123/81 95 10/14/17 15:00 88 10/14/17 13:37 99 F Assessment and Plan: 1. As per discharge assessments above 2. Disposition: [facility] [place] Home Medications Medication Instructions Recorded Confirmed Type Estradiol/Levonorgestrel [Climara 1 patch TD WEEKLY patch 12/06/11 10/14/17 History Pro Patch] Evening Crook Oil [Evening 500 mg PO cap 05/04/16 History Crook] Albuterol Sulfate [Proair Hfa] 1 - 2 puff INH Q4-6H PRN #1 inhaler 08/15/16 History Fluticasone Propionate [Flonase 2 spr RAMEZ DAILY #1 bottle 05/10/17 10/14/17 Rx Allergy Relief] 3 Generic Name Dose Route Start Last Admin Trade Name Freq PRN Reason Stop Dose Admin Acetaminophen 650 mg 10/13/17 23:31 10/14/17 13:37 Tylenol PO 650 mg Q6H PRN Administration Pain or Fever Albuterol Sulfate 2 puff 10/13/17 23:31 Proair Hfa Inhaler INH RTQ4H PRN SOB, cough, wheeze Calcium Carbonate 1 - 2 tab 10/13/17 23:31 Tums PO Q6H PRN Heartburn Docusate Sodium 100 mg 10/13/17 23:31 Colace PO BID PRN Constipation Fentanyl Citrate 50 mcg 10/14/17 19:57 10/14/17 22:41 Sublimaze Inj IVP 50 mcg Q2H PRN Administration Pain Hydromorphone HCl 2 mg 10/14/17 23:48 10/15/17 09:57 Dilaudid Inj IVP 2 mg Q3H PRN Administration Pain Sodium Chloride 25 mls @ 200 mls/hr 10/13/17 23:31 Normal Saline 0.9% IV .Post Infusion PRN No Primary IV for Flush ONLY Potassium Chloride/Dextrose/Sod Cl 1,000 mls @ 125 mls/hr 10/14/17 10:15 11/01 13:06 Pot Chl 20meq + D5-1/2ns PRIMARY IV Not Given .Q8H SHASTA Acetaminophen 1,000 mg in 100 mls @ 400 mls/hr 10/14/17 17:19 10/15/17 09:27 Ofirmev 1000mg Inj IV 400 mls/hr Q8H PRN Administration Pain Ketorolac Tromethamine 30 mg 10/14/17 17:20 10/15/17 12:53 Toradol Inj IVP 30 mg Q6H PRN Administration pain Lidocaine HCl 0.5 ml 10/13/17 23:31 Lidocaine Buffered Inj SUBD ONCE PRN IV Starts Ondansetron HCl 4 mg 10/13/17 23:31 10/15/17 07:07 Zofran Inj IVP 4 mg Q6H PRN Administration NAUSEA / VOMITING Prochlorperazine Edisylate 10 mg 10/14/17 17:18 10/15/17 09:59 Compazine Inj IVP 10 mg Q6H PRN Administration NAUSEA / VOMITING Sodium Chloride 5 - 20 ml 10/13/17 23:31 Saline Flush IVP BID PRN Flush 3. Condition on discharge, stable will need further workup with specialty care 4. Diet: Nothing by mouth with ice chips 5. Activities: resume normal activities 6. Follow-Up: 1. PCP 2. 7. Medications at the Time of Discharge: 8. Time, care, counseling and coordination of care for this discharge is greater than 30 minutes. Exam - Vitals Vital Signs: Vital Signs Temperature 98.6 F Temperature Source Oral Pulse Rate [Pulse Oximeter] 78 Pulse Rate 78 Respiratory Rate 20 Blood Pressure [Right Arm] 97/60 Blood Pressure 155/77 Pulse Ox 95 Oxygen Flow Rate 2 Oxygen Delivery Method Nasal Cannula Height 5 ft 4 in Weight 203 lb
[2017-10-17 13:15] LABS: A/G RATIO 1.02; ALB PEP SER 3.3 g/dL (3.4-4.7); ALP1 GLOB 0.3 g/dL (0.1-0.3); ALP2 GLOB 1.1 g/dL (0.6-1.0); GAMMA GLOBS 0.9 g/dL (0.6-1.6)
--- NOTE | 2017-11-05 16:23 | PDOC(PROG) ---
General Note Progress Note: patient called here to let us know she had lost 24 pounds and had stomach pain. I got her set up with surgery on 11/08/2017, at 11 AM, for an outpatient appointment for further evaluation. Patient Problems - Patient Problem List (1) Pancreatitis Status: Acute Code(s): K85.90 - Acute pancreatitis without necrosis or infection, unspecified Qualifiers: Chronicity: acute Pancreatitis type: idiopathic Acute pancreatitis complication: no infection or necrosis Qualified Code(s): K85.00 - Idiopathic acute pancreatitis without necrosis or infection Category: Medical (2) Leukocytosis Status: Acute Code(s): D72.829 - Elevated white blood cell count, unspecified Qualifiers: Leukocytosis type: unspecified Qualified Code(s): D72.829 - Elevated white blood cell count, unspecified Category: Medical
== END 2017-10-15 13:40 | disposition short-term general hospital (02) | DRG 440 ==
LOC: ER 21:54 → MED/SURG 23:10
PROVIDERS: ADMIT Family Medicine; ATTEND Family Medicine